=== PATIENT | male | born 2000 | race Caucasian/White ===

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

== ENCOUNTER 2020-03-04 01:38 | Emergency (ER) | payer SELFPAY ==
[2020-03-04 01:39] VITALS: BP 134/77; PULSE 73; RESP 20; TEMP 36.6; O2SAT 94; BMI 39.6
--- NOTE | 2020-03-04 01:48 | RAD_ITS ---
STUDY: X-RAY - SOFT TISSUE NECK REASON FOR EXAM: Male, 19 years old. Difficulty swallowing TECHNIQUE: 2 view(s) of the neck were obtained. COMPARISON: None. FINDINGS: Normal visualized nasopharynx, oropharynx, hypopharynx. Normal epiglottis. Normal visualized subglottic tracheal air column. Normal prevertebral soft tissue structures. Normal visualized osseous structures. The soft tissue structures are unremarkable. RAD/Neck for Soft Tissue IMPRESSION: Normal x-ray soft tissue neck. Electronically Signed: Shaggy Berg MD at 2:20 EDT Tel , Service support ,
--- NOTE | 2020-03-04 01:48 | ED.VIS.GEN ---
History of Present Illness Chief Complaint: Wound Check Informant: Patient Onset: Today Narrative: Patient presents with pain and drainage from a chronic sinus tract from his neck to his chest. He states since he was a young child he had a sinus tract to his right upper chest. He states occasionally it will become painful and swell. When it does this he will flex his neck and able to get it to drain. He did that at work tonight and states that shot blood out of the wound. He is never had blood come out. He states he was told when he was a child that he could choose to electively have it closed off but never had insurance to do so. Past Medical History - Allergies and Home Meds Allergies/Adverse Reactions: Allergies hydromorphone [From Dilaudid] Allergy (Verified 03/04/20 01:42) Unknown Primary Care Physician: Care Physician,No Primary [Primary Care Provider] - Prior records reviewed: Yes Smoking Status: Current every day smoker Review of Systems General: Denies: Chills, Fever Eyes: Denies: Visual changes - bilaterally ENT: Reports: Sore throat. Denies: Bilateral ear pain Cardiovascular: Denies: Chest pain Respiratory: Denies: Dyspnea Gastrointestinal: Denies: Abdominal pain, Nausea Skin: Reports: Wounds Allergy: Denies: Uticaria Physical Exam Vital Signs/Narrative: Vital Signs Temp Pulse Resp BP Pulse Ox 03/04/20 01:39 97.8 F 73 20 H 134/77 H 94 Inital Vital Signs reviewed: Yes General: Well nourished, Well developed Head: Normocephalic Eyes: Perrl, EOMI ENT: Moist mucous membranes, - - 3+ tonsils. Uvula midline. Tolerating secretions well and has a strong voice. Neck: Supple Cardiovascular: Regular rate, Regular rhythm Respiratory: No distress, CTA bilaterally Abdomen: Soft, Nontender Skin: - - What appears to be exit from a sinus tract noted on the upper right anterior chest wall. No surrounding fluctuance or erythema. Neurological: Alert, Oriented x3 Psychological: Normal affect Diagnostic/Tx/Re-eval Soft tissue neck x-ray per my review was unremarkable. - Medical Decision Making Patient had drainage from a known sinus tract. He will be covered with Bactrim and Keflex. He is given a good Rx card to help cover cost of his antibiotics and will be given information for ENT follow-up. ED Disposition - Plan for ED Patient: Disposition: Home or Assisted Living Diagnosis: Abscess Instructions: ED Abscess Antibiotic Treatment Only Prescriptions: Smz/Tmp Ds [Bactrim Ds] 1 tab PO BID #20 tab Transmission Status: Pending to [id number] Cephalexin [Keflex] 500 mg PO Q6 #40 cap Transmission Status: Pending to [id number] Referrals: Salty Montero MD [STAFF PHYSICIAN] - As Needed
[2020-03-04] MEDS: Cephalexin 250 MG Capsule 500 MG PO (02:35)
[2020-03-04] MEDS: Smz/Tmp Ds Tablet 1 TABLET PO (02:35)
== END 2020-03-04 02:41 | disposition home or self-care (01) ==
LOC: ED 02:12
PROVIDERS: Emergency Provider Emergency Medicine
DX: L02.91 Cutaneous abscess, unspecified (principal); J02.9 Acute pharyngitis, unspecified; F17.200 Nicotine dependence, unspecified, uncomplicated
CPT/HCPCS: 70360; 99283

== ENCOUNTER 2020-07-01 16:31 | Emergency (ER) | payer SELFPAY ==
[2020-07-01 16:32] VITALS: BP 155/101; PULSE 99; RESP 20; TEMP 35.8; O2SAT 97; BMI 39.4
--- NOTE | 2020-07-01 16:48 | EKG12_ITS ---
Test Reason : CHEST OTHER Blood Pressure : / mmHG Vent. Rate : 071 BPM Atrial Rate : 071 BPM P-R Int : 136 ms QRS Dur : 094 ms QT Int : 372 ms P-R-T Axes : 035 058 044 degrees QTc Int : 404 ms Normal sinus rhythm Normal ECG Confirmed by BARTOLOME MOTTA, ERICA ([id number]), scientific editor MARY BETH CHAMBERS ([id number]) on 07/02/2020 11:23:43 AM Referred By: ADINA Confirmed By:ERICA MANCUSO MD
--- NOTE | 2020-07-01 16:56 | NURSING ---
NO OLD EKGS
[2020-07-01] MEDS: Ketorolac 60 MG/2 ML Vial IM (17:00)
--- NOTE | 2020-07-01 17:06 | ED.DCSUM_ITS ---
- ER Visit Summary Date of Service: 07/01/20 Chief Complaint: Chest pain History of Present Illness: The patient is a 20 M who presents with chest pain as well as panic attacks. He states is been ongoing for a week. He is a continuous heaviness and sharp pains throughout his chest. Does not localize into one area. Nothing makes it better but breathing makes it worse. He denies cough or fever. He has been having intermittent panic attacks over the past week. He has no history of this. He denies any shortness of breath. He has no PE or DVT risk factors. He also has no cardiac risk factors. Physical Examination: Vital signs reviewed. HEENT exam unremarkable. Heart is regular rate and rhythm without murmurs. Lungs are clear to auscultation. His chest is diffusely tender upon palpation at any area. Abdomen is soft and nontender. Extremities reveal no edema. Peripheral pulses are equal. Has no calf pain or leg swelling. Skin exam normal. Neurologic exam normal. Test Results: EKG is sinus rhythm with no ischemic changes. Chest x-ray i nterpreted by myself, 2 views shows no acute findings. Emergency Department Course and Treatment: The patient's pain is likely musculoskeletal. It is reproducible. He is PERC negative as his heart rate is in the 70s. He has no PE risk factors or symptoms. The patient be discharged with naproxen to help with his pain. I will give him Vistaril to help with his panic attacks. He will call his PCP for follow-up. Treatment Plan: [] Disposition: Discharge Impression: Chest wall pain This note was generated with [employer] dictation software. It may contain incorrect words, spelling, and punctuation that were not noted in review of the chart prior to signing ED Disposition - Plan for ED Patient: Disposition: Home or Assisted Living Instructions: ED Chest Wall Pain, Costochondritis Prescriptions: Naproxen [Naprosyn] 500 mg PO BID PRN #20 tab Prescription Printed hydrOXYzine pamoate capsule [Vistaril] 25 mg PO TID PRN PRN #30 cap PRN Reason: Anxiety Prescription Printed Referrals: Care Physician,No Primary [Primary Care Provider] -
--- NOTE | 2020-07-01 17:10 | RAD_ITS ---
STUDY: X-RAY CHEST REASON FOR EXAM: Male, 20 years old. Chest pain TECHNIQUE: Frontal and lateral views of the chest COMPARISON: None. FINDINGS: The lungs are clear. There are no pleural effusions. There is no pneumothorax. The heart is normal in size. The visualized osseous structures are within normal limits. RAD/Chest PA and Lateral IMPRESSION: No acute thoracic pathology. Electronically Signed: Hossein Mao MD at 17:39 EST Tel , Service support ,
== END 2020-07-01 17:59 | disposition home or self-care (01) ==
PROVIDERS: Emergency Provider Emergency Medicine
DX: R07.89 Other chest pain (principal); F41.0 Panic disorder [episodic paroxysmal anxiety]; F17.290 Nicotine dependence, other tobacco product, uncomplicated; Z79.899 Other long term (current) drug therapy
CPT/HCPCS: 71046; 93005; 96372; 99283

== ENCOUNTER 2020-07-04 09:31 | Emergency (ER) | payer SELFPAY ==
[2020-07-04 09:32] VITALS: BP 153/104; PULSE 89; RESP 18; TEMP 5388.3; TEMP 9731; O2SAT 97; BMI 37.3
--- NOTE | 2020-07-04 09:58 | EKG12_ITS ---
Test Reason : DIZZINESS Blood Pressure : / mmHG Vent. Rate : 068 BPM Atrial Rate : 068 BPM P-R Int : 144 ms QRS Dur : 098 ms QT Int : 378 ms P-R-T Axes : 040 048 042 degrees QTc Int : 401 ms Normal sinus rhythm Normal ECG Confirmed by KEVIN MOTTA, MARTIN ([id number]), telegraph editor SPARKLE BILLS ([id number]) on 07/06/2020 8:22:39 AM Referred By: ELMO Confirmed By:MARTIN BROWN MD
--- NOTE | 2020-07-04 09:58 | RAD_ITS ---
STUDY: X-RAY CHEST REASON FOR EXAM: Male, 20 years old. nausea and vomiting -- dizziness TECHNIQUE: Single AP portable view of the chest. COMPARISON: FINDINGS: The lungs are clear and expanded. There is no demonstrated pleural abnormality. Normal size heart. Normal mediastinum and xi. Normal visualized pulmonary arteries. Normal visualized aortic arch and descending thoracic aorta. Normal visualized thoracic spine. Normal visualized ribs, clavicles, and shoulders. There is no demonstrated abnormality of the visualized soft tissue structures of the upper abdomen. RAD/Chest 1 View (Portable) IMPRESSION: Normal x-ray examination of the chest. Electronically Signed: Jesse Dietrich MD at 11:16 EST Tel , Service support ,
--- NOTE | 2020-07-04 10:04 | ED.VISSUMM ---
- ER Visit Summary Date of Service: 07/04/20 Chief Complaint: Vomiting History of Present Illness: The patient is a 20 M presenting with vomiting. He states this has been ongoing for the past week 1.5 week. He states he feels dizzy without syncope. He has diffuse chest and abdominal pain. He has nausea, vomiting, diarrhea. He has diffuse myalgias. Denies fever. He was seen in the ED on 07/01/2020 for chest wall pain and anxiety. He states he has continued symptoms. Physical Examination: Vitals are stable. Patient is afebrile. Alert no acute distress. HEENT exam is unremarkable. Neck is supple. Lungs are clear and equal bilaterally. Chest wall tenderness with no crepitus Heart is regular rate and rhythm. Abdomen is soft nontender nondistended. No guarding or rebound Extremities are unremarkable. Skin is warm and dry. No focal neurologic deficit. Remainder of exam is unremarkable. Emergency Department Course and Treatment: Patient was given IV fluids, Zofran. EKG is sinus rhythm rate of 68 with no acute ischemic changes. CBC, chemistries unremarkable. Liver lipase normal. Troponin is negative. D-dimer negative. Orthostatics negative. Covid negative. Patient was given a GI cocktail with no change. Chest x-ray read by myself and radiology shows normal x-ray examination of the chest. On reevaluation, patient is resting comfortably. Patient's chest pain is reproducible. I feel this is likely musculoskeletal pain. He will continue NSAIDs. He is advised to follow-up with primary care physician. Advised return to the ED for worsening complaints Disposition: Discharge home Impression: Chest wall pain This note was generated with [email or web address] dictation software. It may contain incorrect words, spelling, and punctuation that were not noted in review of the chart prior to signing ED Disposition - Plan for ED Patient: Instructions: ED Chest Wall Pain, Costochondritis Referrals: Stephan Ren MD [NON-STAFF] - Rasheeda Zhang [NON-STAFF] -
[2020-07-04 10:16] LABS: Absolute Lymphocyte Count 1.55 X10^3/uL (0.83-4.51); Absolute Neutrophil Count 7.6 X10^3/uL (2.0-7.7); Basophil# 0.04 X10^3/uL; Basophil% 0.4 % (0-1); Eosinophil# 0.01 X10^3/uL; Eosinophils% 0.1 % (0-5); Hematocrit 45.8 % (40-54); Lymphocyte # 1.55 X10^3/ul (4.0); Lymphocyte % 15.4 % (19-41); Mean Corp Hgb Conc 32.8 g/dL (32-36); Mean Corpuscular Volume 88.4 fL (80-94); Mean Platelet Vol. 9.9 fl (6.2-12.0); Monocyte# 0.82 X10^3/uL; Monocyte% 8.2 % (0-10); NRBC Flagged by Analyzer 0 % (0-5); Neutrophil # 7.58 X10^3/uL (2.7-7.7); Neutrophil % 75.5 % (47-70); Platelet Count 302 K/mm3 (150-450); RBC Distribution Width CV 12.2 % (11.6-14.6); RBC Distribution Width SD 39.9 fl (35.1-43.9); Red Blood Count 5.18 M/mm3 (4.6-6.2)
[2020-07-04] MEDS: Ondansetron 4 MG/2 ML Vial IV (10:17)
[2020-07-04] MEDS: 0.9% Normal Saline 1,000 ML 1000 ML IV (10:17)
[2020-07-04 10:22] VITALS: BP 129/77; BP 135/74; BP 137/72; PULSE 58; PULSE 63; PULSE 77
[2020-07-04 10:35] LABS: AST(SGOT) 18 U/L (15-37); Alanine Aminotransfer ALT/SGPT 35 U/L (16-61); Albumin, Serum 4.2 g/dL (3.2-5.0); Alkaline Phosphatase 84 U/L (45-117); Anion Gap 7 (5-15); BUN 16 mg/dL (7-18); BUN/Creat Ratio 12.6 RATIO (10-20); Calcium,Total 9.6 mg/dL (8.5-10.1); Chloride 106 mmol/L (98-107); Creatinine, Serum 1.27 mg/dL (0.70-1.30); D-Dimer Quantitative (DVT/PE) <= 0.27 FEU/ug/m (0.27-0.49); EST Glomerular Filtration Rate 77 mL/min (>60); Est Glom Filt Rate - Afr Amer 93 mL/min (>60); Estimated Creatinine Clearance 116.93 ml/min; Glucose 99 mg/dL (74-106); Lipase 38 U/L (73-393); Protein, Total 8.2 g/dL (6.4-8.2); Sodium Level 138 mmol/L (136-145)
[2020-07-04] MEDS: Mag Hydrox/Al Hydrox/Simeth 30 ML UDC PO (11:39)
[2020-07-04 11:43] VITALS: RESP 16
--- NOTE | 2020-07-04 12:06 | ED.DEP ---
ED Disposition - Plan for ED Patient: Instructions: ED Chest Wall Pain, Costochondritis Referrals: Stephan Ren MD [NON-STAFF] - Rasheeda Zhang [NON-STAFF] -
== END 2020-07-04 12:43 | disposition home or self-care (01) ==
LOC: ED 10:49
PROVIDERS: Emergency Provider Emergency Medicine
DX: R07.89 Other chest pain (principal); Z20.822 Contact with and (suspected) exposure to COVID-19; R10.9 Unspecified abdominal pain; R11.2 Nausea with vomiting, unspecified; R19.7 Diarrhea, unspecified; M79.10 Myalgia, unspecified site; F41.9 Anxiety disorder, unspecified; Z72.0 Tobacco use; Z79.899 Other long term (current) drug therapy
CPT/HCPCS: 71045; 80053; 83690; 84484; 85025; 85379; 87426; 93005; 96361; 96374; 99283; J7030; A4216; J2405

== ENCOUNTER 2021-10-19 05:31 | Emergency (ER) | payer SELFPAY ==
[2021-10-19 05:32] VITALS: PULSE 94; RESP 16; TEMP 36.6; O2SAT 99; BMI 38.3
[2021-10-19 05:37] VITALS: BP 152/93
--- NOTE | 2021-10-19 05:39 | EX.ED.DYSGE1 ---
HPI History of Present Illness Chief Complaint: Anxiety Informant: patient Onset/Context/Timing Onset: Days (3) Context: Gradual Onset Timing: Continuous Quality: Heaviness Location: Chest Worsened by: Nothing Relieved by: IcyHot, and hot water Narrative Narrative: Patient presents with chest pain, shortness of breath, and anxiety that has been getting worse over the last 3 days. Patient describes his chest pain as a heaviness. Patient states it has been constant over the last 3 days. Patient states nothing makes it worse. Patient states it is better whenever he applies icy hot to the area and lets hot water hit it while he is taking a shower. Patient admits to a slight cough. Patient denies any sputum production. Patient admits to some mild nausea. Patient denies any fevers or chills. PFSH PFSH Medical History no medical history no medical history Home Medications hydroxyzine pamoate 50 mg PO TID PRN PRN #30 capsule 10/19/21 [Rx Last Taken Unknown] Allergy/AdvReac Type Severity Reaction Status Date / Time hydromorphone [From Dilaudid] Allergy Unknown Verified 10/19/21 05:35 Surgical History no surgical history no surgical history Social History Smoking Status: Current every day smoker tobacco type: cigarettes ROS ROS ED Constitutional Constitutional ED: Denies chills or fever(s) Eyes Eyes: Denies blurry vision or change in vision ENT ENT ED: Denies rhinorrhea or sore throat Cardiovascular Cardiovascular: Reports chest pain; Denies palpitations Respiratory/Chest Respiratory/Chest: Reports cough and dyspnea Gastrointestinal Gastrointestinal: Reports nausea; Denies vomiting Genitourinary Genitourinary ED: Denies dysuria or hematuria Musculoskeletal Musculoskeletal: Reports back pain; Denies neck pain Integumentary Denies abscess or rash Neurologic Neurologic: Reports headache(s); Denies weakness Allergic/Immunologic Allergic/Immunologic ED: Denies mouth swelling or urticaria EXAM Physical Exam Const Vital Signs: 10/19/21 05:32 10/19/21 05:37 10/19/21 06:39 Temperature 97.9 F Temperature Source Oral Pulse Rate 94 63 Respiratory Rate 16 15 Blood Pressure 152/93 H 149/82 H Blood Pressure Mean 112 104 Pulse Ox 99 97 Oxygen Delivery Method Room Air Room Air Positive well nourished and well developed General Appearance ED: well developed HEENT Reports moist mucous membranes Neck supple and no JVD Resp normal respiratory effort and clear to auscultation bilaterally Cardio regular rate, regular rhythm and no murmurs GI normal to inspection, nondistended, normoactive bowel sounds and non-tender Palpation: soft Extremity normal to inspection General Extremety ED: Negative for edema or tenderness General Extremity: Negative for edema Neuro oriented x3, CN's II-XII intact bilaterally and no sensory deficits noted Sensorium / Orientation: alert Motor Exam: strength 5/5 throughout Psych mental status grossly normal Skin no rashes or lesions noted MDM MDM MDM Narrative Medical decision making narrative: Patient was given a dose of Vistaril here. Portable 1 view chest x-ray was obtained. On my interpretation, lung potter are clear. There is normal cardiac silhouette. Bony thorax is normal. There is no acute process noted. Radiologist also interpreted the x-ray and agrees. CBC was within normal limits. Basic metabolic profile was within normal limits. High-sensitivity troponin was normal. Patient was advised of his findings. Patient is feeling better on reevaluation. Patient was advised that he is at low risk for acute cardiac event. Patient was instructed to follow-up with his primary care physician in 5 to 7 days. Patient was instructed return if worse in any way. Patient was given a prescription for Vistaril. Patient understood and was agreeable with the plan. All questions were answered. Lab Data Attestation: I reviewed the patient's lab results. Labs: Laboratory Results - last 24 hr 10/19/21 10/19/21 10/19/21 05:50 05:50 06:21 WBC 10.1 RBC 4.95 Hgb 14.7 Hct 43.0 MCV 86.9 MCH 29.7 MCHC 34.2 RDW Std Deviation 39.2 RDW Coeff of Delia 12.3 Plt Count 289 MPV 10.2 Immature Gran % (Auto) 0.300 Neut % (Auto) 57.7 Lymph % (Auto) 29.4 Labette % (Auto) 10.7 H Eos % (Auto) 1.4 Baso % (Auto) 0.5 Absolute Neuts (auto) 5.8 Absolute Lymphs (auto) 2.96 Nucleated RBC % 0 Sodium Cancelled 140 Potassium Cancelled 3.5 Chloride Cancelled 110 H Carbon Dioxide Cancelled 26.0 Anion Gap Cancelled 4 L BUN Cancelled 12 Creatinine Cancelled 0.91 Estim Creat Clear Calc Cancelled 166.00 Est GFR (MDRD) Af Amer Cancelled 135 Est GFR (MDRD) Non-Af Cancelled 111 BUN/Creatinine Ratio Cancelled 13.2 Glucose Cancelled 108 H Calcium Cancelled 8.9 Troponin I High Sens Cancelled 4 Radiography Chest X-Ray - ED: 1 View, Read by ED Physician, Read by Radiologist and No Acute Disease Diagnostic Testing: Clinical Impression(s) from Imaging Studies Chest X-Ray 10/19/21 06:00 IMPRESSION: Normal chest x-ray. Electronically Signed: Shani Shaffer MD at 6:21 EDT , Discharge Plan Triage Chief Complaint: Anxiety ED Provider: Brock Fagan Dx/Rx/DC Orders Clinical Impression: Chest pain, Anxiety Instructions: ED Anxiety Reaction, ED Chest Pain, Uncertain Cause Prescriptions: New hydroxyzine pamoate [hydroxyzine pamoate] 25 MG capsule 50 mg PO TID PRN PRN (Reason: Anxiety) Qty: 30 RF: 0 Primary Care Provider: Care Physician,No Primary Referrals: Stephan Koo MD [STAFF PHYSICIAN] - 5-7 Days Care Physician,No Primary [Primary Care Provider] - Disposition Disposition: Home, Self Care
[2021-10-19] MEDS: hydrOXYzine PAM 25 MG Capsule PO (05:50)
--- NOTE | 2021-10-19 06:00 | RAD_ITS ---
STUDY: X-RAY CHEST REASON FOR EXAM: Male, 21 years old. Cough TECHNIQUE: PA and lateral. COMPARISON: 07/04/2020. FINDINGS: LUNGS: No consolidation. No pneumothorax. MEDIASTINUM: Unremarkable. CARDIAC SILHOUETTE: Not enlarged. BONES AND SOFT TISSUES: No acute abnormalities. RAD/Chest PA and Lateral IMPRESSION: Normal chest x-ray. Electronically Signed: Shani Shaffer MD at 6:21 EDT ,
[2021-10-19 06:01] LABS: Absolute Lymphocyte Count 2.96 X10^3/uL (0.83-4.51); Absolute Neutrophil Count 5.8 X10^3/uL (2.0-7.7); Basophil# 0.05 X10^3/uL; Basophil% 0.5 % (0-1); Eosinophil# 0.14 X10^3/uL; Eosinophils% 1.4 % (0-5); Hemoglobin 14.7 g/dL (13.0-16.5); Lymphocyte # 2.96 X10^3/ul (0.83-4.51); Lymphocyte % 29.4 % (19-41); Mean Corp Hgb Conc 34.2 g/dL (32-36); Mean Corpuscular Hgb 29.7 pg (27.0-32.0); Mean Corpuscular Volume 86.9 fL (80-94); Mean Platelet Vol. 10.2 fl (6.2-12.0); Monocyte# 1.08 X10^3/uL; Monocyte% 10.7 % (0-10); NRBC Flagged by Analyzer 0 % (0-5); Neutrophil # 5.81 X10^3/uL (2.7-7.7); Neutrophil % 57.7 % (47-70); Platelet Count 289 K/mm3 (150-450); RBC Distribution Width CV 12.3 % (11.6-14.6); RBC Distribution Width SD 39.2 fl (35.1-43.9); Red Blood Count 4.95 M/mm3 (4.6-6.2); White Blood Count 10.1 K/mm3 (4.4-11.0)
[2021-10-19 06:39] VITALS: BP 149/82; PULSE 63; RESP 15; O2SAT 97
[2021-10-19 06:44] LABS: Anion Gap 4 (5-15); BUN 12 mg/dL (7-18); BUN/Creat Ratio 13.2 RATIO (10-20); Calcium,Total 8.9 mg/dL (8.5-10.1); Chloride 110 mmol/L (98-107); Creatinine, Serum 0.91 mg/dL (0.70-1.30); EST Glomerular Filtration Rate 111 mL/min (>60); Est Glom Filt Rate - Afr Amer 135 mL/min (>60); Glucose 108 mg/dL (74-106); Potassium 3.5 mmol/L (3.5-5.1); Sodium Level 140 mmol/L (136-145); Troponin-I HS 4 pg/mL (3.0-78.0)
== END 2021-10-19 06:58 | disposition home or self-care (01) ==
PROVIDERS: Emergency Provider Emergency Medicine; Visit Provider Emergency Medicine
DX: R07.9 Chest pain, unspecified (principal); F41.9 Anxiety disorder, unspecified; R11.0 Nausea; R06.02 Shortness of breath; R05.9 Cough, unspecified; F17.210 Nicotine dependence, cigarettes, uncomplicated
CPT/HCPCS: 71046; 80048; 84484; 85025; 99285; A4216

== ENCOUNTER 2023-09-22 07:49 | Emergency (ER) | payer SELFPAY ==
[2023-09-22 07:51] VITALS: BP 151/80; PULSE 79; RESP 16; TEMP 36.7; O2SAT 98; BMI 34.9
--- NOTE | 2023-09-22 08:04 | CT_ITS ---
STUDY: CT SOFT TISSUE NECK WITH CONTRAST REASON FOR EXAM: Male, 23 years old. general dental pain, antibiotics x 5 days without relief diffuse dental/submental pain RADIATION DOSAGE (If Supplied By Facility): CTDIvol = ( 17.70 ) mGy, DLP = ( 694.28 ) mGycm TECHNIQUE: The patient was scanned in a multi-detector CT scanner. High resolution transaxial imaging was performed following intravenous administration of IV 75mL [id number]-[id number]. Sagittal and coronal images were reconstructed. Individualized dose optimization techniques were used for this CT. COMPARISON: CT soft tissues of the neck dated November 26, 2018 FINDINGS: No visualized cortical erosion or bony destruction or cystic lucency in the maxillary or ventricular dental plates that would suggest osteomyelitis. Redemonstration of mild to moderate hypertrophy of the lingual and parapharyngeal tonsils with focal narrowing of the oropharynx but otherwise widely patent and normal airway. No tonsillar abscess or suspicious mass is present. Mild diffuse level 2 lymphadenopathy noted throughout the neck. Normal bilateral parotid glands. Normal bilateral public health analyst spaces. Normal bilateral parapharyngeal spaces. Normal bilateral carotid spaces. Normal bilateral sublingual and submandibular glands and spaces. Normal visualized nasopharynx. Normal retropharyngeal space. Normal perivertebral space. The visualized tongue, tongue base are normal. There are minimally enlarged lymph nodes of the neck, with preservation of normal foster architecture, consistent with a reactive lymph hyperplasia. There is no demonstrated solid or cystic mass lesion. There is no abnormal contrast enhancement. Normal epiglottis, bilateral vallecula and hypopharynx. The pre-epiglottic and paraglottic adipose spaces are normal. Normal visualized bilateral piriform sinuses, aryepiglottic folds, vocal cords, and arytenoid-cricoid articulations. Normal subglottic trachea. Normal bilateral lobes of the thyroid gland. Normal visualized pulmonary apices. Normal visualized paranasal sinuses. Normal visualized cervical spine. CT/Soft Tissue Neck WITH Contrast IMPRESSION: Chronic tonsillar/adenoidal hypertrophy. No visualized abscess of the soft tissues. 1. No visualized cortical erosion or bony destruction or cystic lucency in the maxillary or ventricular dental plates that would suggest osteomyelitis. 2. Redemonstration of mild to moderate hypertrophy of the lingual and parapharyngeal tonsils with focal narrowing of the oropharynx but otherwise widely patent and normal airway. No tonsillar abscess or suspicious mass is present. Mild diffuse level 2 lymphadenopathy noted throughout the neck. Electronically Signed: Galdino Arroyo MD at 10:16 EDT ,
--- NOTE | 2023-09-22 08:08 | ED.VIS.DENTA ---
HPI History of Present Illness Chief Complaint: Dental Informant: patient Narrative Narrative: Patient has had diffuse dental pain for 1 week. Soon after he started having the pain he went to [facility] urgent care and was started on amoxicillin which she has been taking as prescribed in addition to salt water rinses, but the pain has been progressively getting worse. For the past 3 days it hurts so much to eat that he has not eaten anything. The pain started left mandibular molar area, but has spread and is everywhere. He denies any discharge or bleeding. No fevers, chills, systemic symptoms. He now has a pounding headache because of all of this pain. It is Sunday morning and he has an appointment on Sunday with [facility]. [facility] Medical History no medical history no medical history Home Medications hydroxyzine pamoate 25 mg capsule 50 mg (2 x 25 mg) PO TID PRN PRN Anxiety #30 CAPSULES 10/19/21 [Rx Last Taken Unknown] clindamycin HCl 150 mg capsule 300 mg (2 x 150 mg) PO 4X/DAY #80 CAPSULES 09/22/23 [Rx Last Taken Unknown] tramadol 50 mg tablet 50 mg PO Q6H PRN pain 3 days #10 tabs 09/22/23 [Rx Last Taken Unknown] Allergy/AdvReac Type Severity Reaction Status Date / Time hydromorphone [From Dilaudid] Allergy Unknown Verified 09/22/23 07:50 Social History Smoking Status: Current every day smoker tobacco type: cigarettes ROS ROS ED Constitutional Constitutional ED: Denies chills or fever(s) Eyes Eyes: Denies change in vision or double vision ENT ENT ED: Reports dental pain; Denies sinus pain, sore throat or throat swelling Cardiovascular Cardiovascular: Denies chest pain or palpitations Respiratory/Chest Respiratory/Chest: Denies cough or dyspnea Integumentary Denies abscess or rash Neurologic Neurologic: Reports headache(s); Denies paresthesias or weakness EXAM Physical Exam Const Vital Signs: 09/22/23 07:51 Temperature 98.0 F Temperature Source Oral Pulse Rate 79 Respiratory Rate 16 Blood Pressure 151/80 H Blood Pressure Mean 103 Pulse Ox 98 Oxygen Delivery Method Room Air Positive well nourished and well developed Constitutional Narrative: Well-appearing General Appearance ED: well developed and NAD HEENT HEENT Narrative: Gingiva are normal-appearing there is no evidence of necrosis or any focal pathology and no bleeding or discharge from anywhere. There are multiple teeth that do have some decay, namely a molar on the maxillary row both right and left, some maxillary frontal incisors. The worst tenderness is just external to left mandibular molars 2-3 area but I do not palpate a collection. There is no trismus. There is no malocclusion. The sublingual tissues are normal-appearing nontender and nondistended. There is no tongue elevation. Face and Sinus: sinuses nontender Throat: posterior oropharynx normal Eyes PERRL and EOMs intact bilaterally Neck supple Neck Narrative: Diffuse submandibular tenderness but no palpable nodes or focal collections/swellings. Resp normal respiratory effort Neuro oriented x3 and CN's II-XII intact bilaterally Sensorium / Orientation: alert Gait (Neuro): normal gait Psych mental status grossly normal and thought process normal Skin no rashes or lesions noted and no wounds MDM MDM MDM Narrative Medical decision making narrative: It is unclear why the patient has pain everywhere in his dentition with what appears to be objectively a fairly benign exam except for multifocal decay of dentition. For this reason I am obtaining a CT with IV contrast to evaluate for a deep space process. I reviewed the CT images and the report which I agree with. There is no focal deep space collection, there is diffuse lymphadenopathy which is likely contributing to all of this. This suggests a dental infection. Based on this and the fact that he has been on amoxicillin for 6 or 7 days I think it is reasonable to change him over to clindamycin. Will also prescribe him some different pain and advised follow-up with dentistry as scheduled next week. Radiography Diagnostic Testing: Clinical Impression(s) from Imaging Studies Soft Tissue Neck CT 09/22/23 08:04 IMPRESSION: Chronic tonsillar/adenoidal hypertrophy. No visualized abscess of the soft tissues. 1. No visualized cortical erosion or bony destruction or cystic lucency in the maxillary or ventricular dental plates that would suggest osteomyelitis. 2. Redemonstration of mild to moderate hypertrophy of the lingual and parapharyngeal tonsils with focal narrowing of the oropharynx but otherwise widely patent and normal airway. No tonsillar abscess or suspicious mass is present. Mild diffuse level 2 lymphadenopathy noted throughout the neck. Electronically Signed: Galdino Arroyo MD at 10:16 EDT Reading Location ID and State: [address] [place] [address] , Service support , Discharge Plan Triage Chief Complaint: Dental ED Provider: Renan Garg Dx/Rx/DC Orders Clinical Impression: Infected dental caries Instructions: ED Dental Pain Prescriptions: New clindamycin HCl 150 mg capsule 300 mg PO 4X/DAY Qty: 80 0RF tramadol 50 mg tablet 50 mg PO Q6H PRN (Reason: pain) 3 Days Qty: 10 0RF No Action hydroxyzine pamoate [hydroxyzine pamoate] 25 MG capsule 50 mg PO TID PRN PRN (Reason: Anxiety) Qty: 30 0RF Primary Care Provider: Care Physician,No Primary Referrals: Corey Zhang [Non-Staff] - Keep Elias appointment Activity Restrictions/Additional Instructions: Discontinue amoxicillin when you start the new antibiotic. You have a higher chance of having diarrhea and/or C. difficile infection being on clindamycin. To help mitigate this risk, take either a twice daily probiotic or eat yogurt every day while you are on the antibiotics. Disposition Disposition: Home, Self Care
== END 2023-09-22 10:43 | disposition home or self-care (01) ==
PROVIDERS: Emergency Provider Emergency Medicine; Visit Provider Emergency Medicine
DX: K02.9 Dental caries, unspecified (principal); K04.7 Periapical abscess without sinus; R59.0 Localized enlarged lymph nodes; K08.89 Other specified disorders of teeth and supporting structures; F17.210 Nicotine dependence, cigarettes, uncomplicated
CPT/HCPCS: 70491; 99283; Q9967